=== PATIENT | female | born 1935 | race Caucasian/White ===

== ENCOUNTER 2017-01-09 10:02 | Emergency (ER) | payer MEDICARE, BC ==
[2017-01-09 10:27] VITALS: BP 121/70
[2017-01-09] MEDS ORDERED: ACYCLOVIR 800 MG TABLET PO ONE (10:55)
--- OUTSIDE RECORDS SUMMARY | 2017-01-09 11:06 | XMS REPORT | Continuity of Care Document ---
:1935 Author Organization [facility] ([facility]) Address [place] [address] Phone [phone] Care Team Providers Name Role Phone Gopi Santos Primary Care Provider [phone] Source Comments This disclosure is being made pursuant to the Care Everywhere program, applicable federal and state laws, and may not contain all informaitonavailable regarding this patient.[facility] ([facility]) Active Allergies and Adverse Reactions Allergen Noted Date Severity Reactions Comments Clarithromycin OTHER extreme weakness (not allergic) Hydrochlorothiazide OTHER tired and washed out (not allergic) Lomefloxacin OTHER tired and washed out Other Agent OTHER Perfumes (sore thoart and difficulty breathing) Phenylpropanolamine OTHER tired and washed out (not allergic) Salicylates OTHER tired and washed out (not allergic) Sulfadoxine OTHER tired and washed out Trandolapril OTHER tired and washed out not allergic Current Medications Not on file Active Problems Problem Noted Date Essential hypertension, benign 04/17/2007 Immunizations Name Dates Previously Given Next Due Influenza, unspecified 09/14/2006 Social History Tobacco Use Types Packs/Day Years Used Date Never Assessed Last Filed Vital Signs Vital Sign Reading Time Taken Blood Pressure 160/92 08/01/2007 11:43 AM CDT Pulse 72 08/01/2007 11:43 AM CDT Temperature 36.2 C (97.16 F) 08/01/2007 11:43 AM CDT Respiratory Rate - - Height - - Weight 54.999 kg (121 lb 4 oz) 08/01/2007 11:43 AM CDT Body Mass Index - - Oxygen Saturation - - Plan of Care Health Maintenance Due Date Last Done Comments Hepatitis B Vaccine (1 of 3 - Primary Series) 1935 Tdap Vaccine 1945 Lipid Disorder Screening 1952 Td Vaccine 1952 Colonoscopy 12/07/1984 Zoster Vaccine 1994 Osteoporosis Screening (DXA Bone Density) 1999 Pneumococcal Vaccine (1 of 2 - PCV13) 1999 Influenza Vaccine: Seasonal (#1) 06/14/2016 09/14/2006 Results from Last 3 Months Not on file
--- NOTE | 2017-01-09 11:13 | ERNOTE ---
Integumentary HPI - Narrative Date of Service: 01/09/17 - General Presenting Symptoms: rash Time Seen by Provider: 01/09/17 10:38 Source: patient, family Exam Limitations: no limitations - Immun/Allergies/Home Medications Immunizations: IMMUNIZATION HX History of Influenza Vaccine Yes Hx Pneumococcal Vaccination No Allergies/Adverse Reactions: Allergies Allergy/AdvReac Type Severity Reaction Status Date / Time No Known Allergies Allergy Verified 01/09/17 10:27 Home Medications: HOME MEDICATIONS Albuterol Sulfate [Ventolin Hfa] 2 puff IH Q4H PRN 02/21/14 [Last Taken Unknown] Alprazolam 0.25 - 0.5 mg PO TID PRN 02/21/14 [Last Taken Unknown] Amlodipine Besylate [Norvasc] 10 mg PO HS 02/21/14 [Last Taken Unknown] Ascorbic Acid [Vitamin C] 500 mg PO DAILY 02/21/14 [Last Taken Unknown] Enalapril Maleate [Vasotec] 10 mg PO BID 02/21/14 [Last Taken Unknown] Famotidine [Pepcid AC] 10 mg PO BID PRN 02/21/14 [Last Taken Unknown] Tiotropium [place] [Spiriva] 1 cap IH DAILY 02/21/14 [Last Taken Unknown] Vitamin E 100 unit PO DAILY 02/21/14 [Last Taken Unknown] Ascorbic Acid/Cod Liver Oil [Cod Liver Oil Tab Chewable] 2 each PO DAILY [Last Taken Unknown] Aspirin [Aspirin Enteric Coated] 81 mg PO DAILY 06/18/15 [Last Taken Unknown] Calcium Carbonate/Vitamin D3 [Calcium 500 + Vit D3 400 Tab] 1 each PO BID [Last Taken Unknown] Cyanocobalamin (Vitamin B-12) [Vitamin B-12] 2,000 mcg PO DAILY 06/18/15 [Last Taken Unknown] Fluticasone Propionate [Flovent Hfa] 2 puff IH BID 06/18/15 [Last Taken Unknown] Levalbuterol Tartrate [Xopenex Hfa] 2 puff IH Q6H PRN 06/18/15 [Last Taken Unknown] Levocetirizine Dihydrochloride [Xyzal] 5 mg PO HS 06/18/15 [Last Taken Unknown] Montelukast Sodium [Singulair] 10 mg PO DAILY 06/18/15 [Last Taken Unknown] Acyclovir 800 mg PO 5XD #35 tablet 01/09/17 [Last Taken Unknown] - Pain Pain Score: 0 - History of Present Illness Narrative: 81 y/o female brought to the ED in wheelchair with oxygen by her daughter for left eye swelling and drainage that began yesterday. Today she has also developed a rash on her nose and the left frontal region extending into her scalp. She denies any pain. She reports some blurring of her vision. Location: Reports: facial Quality: Denies: itching, painful, burning Severity: moderate Exposure: Reports: no cause identified Associated Symptoms: Reports: blisters, rash, change in skin texture, edema, malaise. Denies: fever, headache Review of Systems - Review of Systems Constitutional: Absent: recent illness, fever, chills EYE: Present: eye discharge, blurred vision. Absent: eye pain, tearing ENT: Absent: ear pain, nasal drainage, sore throat Respiratory: Present: shortness of breath - chronic, cough - chronic Cardiology: Present: no symptoms reported Gastrointestinal/Abdominal: Absent: nausea, vomiting, abdominal pain Genitourinary: Present: no symptoms reported Musculoskeletal: Absent: muscle stiffness, neck pain Skin: Present: rash, lesions Neurological: Absent: headache, dizziness/light-headedness, numbness, tingling Endocrine: Present: no symptoms reported Hematologic/Lymphatic: Present: no symptoms reported Psych: Present: no symptoms reported - Patient's Past Medical History Patient History - Medical: Cataracts, GERD, Osteoporosis, UTI'S Patient History - Cardiac/Respiratory: COPD, Hypertension, Hyperlipidemia, Home O2 Use Patient History - Cancer: No Hx of Cancer Patient History - Surgical Procedures: Appendectomy, Cataracts, Hysterectomy Patient History - Other: None - Social History Living Situations: home Abuse History: No History of abuse Psych History: No pertinent hx Smoking Status: Current every day smoker Cigarettes Packs Per Day: 0.3 Patient requests Smoking Cessation Consult: No Alcohol Use: none Drug Use: none - Immunizations Hx Pneumococcal Vaccination: No History of Influenza Vaccine: Yes Physical Exam - Physical Exam General Appearance: Present: alert, no apparent distress, cachetic, other - disheveled, frail appearing Eye Exam: PERRL: bilateral, EOMI: bilateral, Eye drainage: left - purulent, Eyelid inflammation: left, Other: bilateral - no photophobia or eye pain with EOM's Ears, Nose, Throat: Present: hearing grossly normal, normal pharynx. Absent: abnormal TM (R), abnormal TM (L), nasal congestion, sinus pain/drainage Neck: Present: normal inspection, nontender, supple. Absent: lymphadenopathy (R ), lymphadenopathy (L) Respiratory: Present: no respiratory distress, no accessory muscle use, lungs clear, decreased breath sounds, expiration (prolonged) Cardiovascular/Chest: Present: regular rate, rhythm, no murmur, normal peripheral pulses Extremity Exam: Present: non-tender, pedal edema Neurological Exam: Present: alert, oriented, no motor/sensory deficits, other - dysphoric. Absent: normal mood/affect Skin Exam: Present: warm/dry, skin rash - moderate papular/vesicular eruption to nose and left frontal region extending into scalp ED Progress - Vital Signs Patient's Vital Signs:: I have reviewed the patient's vital signs. Vital Signs: Vital Signs 01/09/17 10:23 Temperature 36.0 C L Pulse Rate 83 Respiratory 18 Rate Blood Pressure 121/70 O2 Sat by Pulse 89 L Oximetry - Progress/Reassessment Chief Complaint: Eye Injury/Trauma Progress:: Unchanged Plan - Plan Plan: Patient does not like to take any additional medication - questionable as to whether she will take the acyclovir despite her daughter's insistence. Discussed complications of untreated zoster. Daughter in agreement with contacting opthalmology for f/u when they are back in the office tomorrow. Departure Clinical Impression: Herpes zoster with other ophthalmic complications - Departure Disposition: Home Follow Up Needed Condition: Stable Instructions: Shingles, [id number] Additional Instructions: Continue your current medications Take Acyclovir as directed Avoid contact with women and people who have not had chicken pox Contact opthalmology tomorrow for appointment to evaluate eye involvement Referrals: Augie Ziegler DO [Primary Care Provider] - Armando Bernal MD [Staff Physician] - Prescriptions: Acyclovir 800 mg PO 5XD #35 tablet
[2017-01-09] MEDS ORDERED: ACYCLOVIR 800 MG TABLET ONE (11:17)
== END 2017-01-09 11:41 | disposition home or self-care (01) ==
LOC: ER 10:02
DX: B02.30 Zoster ocular disease, unspecified (principal); F17.210 Nicotine dependence, cigarettes, uncomplicated

== ENCOUNTER 2017-01-20 09:56 | Inpatient (IN) | payer MEDICARE, BC ==
[2017-01-20 10:41] LABS: Hematocrit 40.7 % (37.0-47.0); Hemoglobin 12.2 gm/dL (12.5-16.0); Mean Cell Volume 112.7 fl (78-100); Mean Corpuscular Hemoglobin 33.8 pg (27-31); Mean Platelet Volume 8.9 fl (6.0-9.5); Neutrophil % 84.5 % (42-75.0); Platelet Count 167 K/mm3 (150-450); Red Blood Count 3.61 M/mm3 (4.2-5.4); White Blood Count 16.5 K/mm3 (4.0-10.5)
[2017-01-20 10:42] LABS: Urine Bilirubin 1 mg/dl (NEGATIVE); Urine Blood 25 /ul (NEGATIVE); Urine Ketone 5 mg/dL (NEGATIVE); Urine Nitrite Negative (NEGATIVE); Urine Protein 100 mg/dL (NEGATIVE); Urine Specific Gravity >=1.030 SP.GR. (1.005-1.010); Urine Urobilinogen 4 EU/dl (NORMAL); Urine pH 5.5 pH (5.0-7.0)
--- OUTSIDE RECORDS SUMMARY | 2017-01-20 10:43 | XMS REPORT | Continuity of Care Document ---
:1935 Author Organization [facility] ([facility]) [place] [address] Phone [phone] Care Team Providers Name Role Phone Gopi Santos Primary Care Provider [phone] Source Comments This disclosure is being made pursuant to the Care Everywhere program, applicable federal and state laws, and may not contain all informaitonavailable regarding this patient.[facility] ([facility]) Active Allergies and Adverse Reactions Allergen [...]
--- OUTSIDE RECORDS SUMMARY | 2017-01-20 10:44 | XMS REPORT | Summary of Care ---
:1935 Author Organization [facility] Address [address] [place] [address] Care Team Providers Name Role Phone Augie Ziegler Primary Care Physician Encounter Date(s): 01/10/17 - 01/10/17 [facility], [address] [place], [place] [address] Discharge Disposition: Discharged to Home or Self Care Attending Physician: Shanika Arrington MD Referring Physician: Shanika Arrington MD Vital Signs No data available for this section Problem List No data available for this section Allergies, Adverse Reactions, Alerts No Known Medication Allergies Medications acyclovir 400 mg oral tablet 1 tab(s), Oral, TID, # 90 tab(s), 2 Refill(s), Start Date: 01/10/17 10:24:00 SMASH HAND , Pharmacy: [facility] [place], [place] Start Date: 01/10/17 Stop Date: 04/10/17 Status: Orderedacyclovir 800 mg oral tablet 1 tab(s), Oral, 5x/Day, # 50 tab(s), 0 Refill(s), Start Date: 01/10/17 10:04:00 [facility] HAND Start Date: 01/10/17 Stop Date: 01/20/17 Status: OrderedALPRAZolam 0.5 mg oral tablet 1 tab(s), Oral, TID, PRN for anxiety, 0 Refill(s), Start Date: 01/10/17 9:59:00 [facility] HAND Start Date: 01/10/17 Status: OrderedALPRAZolam oral concentrate 1 mg, Oral, TID, 0 Refill(s), Start Date: 01/10/17 10:01:00 [facility] Start Date: 01/10/17 Status: OrderedAspir 81 81 mg, Oral, Daily, 0 Refill(s), Start Date: 01/10/17 10:00:00 [facility] HAND Start Date: 01/10/17 Status: OrderedNorvasc 10 mg oral tablet 1 tab(s), Oral, Daily, # 30 tab(s), 0 Refill(s), Start Date: 01/10/17 9:59:00 [facility] HAND Start Date: 01/10/17 Status: OrderedPepcid AC 10 mg, Oral, ONETIME, 0 Refill(s), Start Date: 01/10/17 10:00:00 [facility] Start Date: 01/10/17 Status: OrderedSingulair 10 mg oral tablet 1 tab(s), Oral, qPM, # 30 tab(s), 0 Refill(s), Start Date: 01/10/17 10:01:00 SM[facility] HAND Start Date: 01/10/17 Status: OrderedSpiriva 18 mcg, Inhale, Daily, 0 Refill(s), Start Date: 01/10/17 10:01:00 SM[facility] HAND Start Date: 01/10/17 Status: OrderedVasotec 20 mg oral tablet 1 tab(s), Oral, Daily, # 30 tab(s), 0 Refill(s), Start Date: 01/10/17 9:59:00 SM[facility] HAND Start Date: 01/10/17 Status: OrderedZyrTEC Liquid Gels 10 mg oral capsule 1 cap(s), Oral, Daily, PRN for allergy symptoms, # 40 cap(s), 0 Refill(s), Start Date: 01/10/17 10:01:00 SMASH HAND Start Date: 01/10/17 Status: Ordered Results No data available for this section Immunizations Vaccine Date Refusal Reason influenza virus vaccine, inactivated 08/28/14 Procedures Procedure Date Related Diagnosis Body Site Phacoemulsification of cataract with intraocular lens implantation1 1OU Social History No data available for this section Assessment and Plan No data available for this section
[2017-01-20 10:47] LABS: Urine Appearance Slightly Cloudy; Urine Color Dark Yellow
[2017-01-20] MEDS ORDERED: NORMAL SALINE 1,000 ML IV ONE ×5 (10:49→14:16)
[2017-01-20 10:50] LABS: Urine Bacteria 3+
[2017-01-20 10:54] LABS: Albumin * 2.2 gm/dl (3.4-5.0); Anion Gap 13.7 mmol/L (6.8-13.8); BUN/Creatinine Ratio 23.9 (9.0-21.6); Bilirubin, Total 0.6 mg/dL (0.0-1.1); Ca. Corrected For Albumin 8.5 mg/dL (8.4-10.2); Calcium * 7.4 mg/dL (7.9-10.9); Carbon Dioxide 29.6 mmol/L (24-32.6); Potassium 5.3 mmol/L (3.4-4.6); Total Protein 4.7 gm/dL (6.2-8.2)
--- NOTE | 2017-01-20 11:05 | ERNOTE ---
Neuro HPI ER Record Date of Service: 01/20/17 Presenting Symptoms: other - Pt was found down and unresponsive. Last time seen was last night and she appeared to be in good spirits at that time. The patient is quite frail and has advanced COPD. Time Seen by Provider: 01/20/17 10:37 Immunizations: IMMUNIZATION HX History of Influenza Vaccine Yes Hx Pneumococcal Vaccination No Allergies/Adverse Reactions: Allergies Allergy/AdvReac Type Severity Reaction Status Date / Time No Known Allergies Allergy Verified 01/20/17 11:11 Home Medications: HOME MEDICATIONS Albuterol Sulfate [Ventolin Hfa] 2 puff IH Q4H PRN 02/21/14 [Last Taken Unknown] Alprazolam 0.25 - 0.5 mg PO TID PRN 02/21/14 [Last Taken Unknown] Amlodipine Besylate [Norvasc] 10 mg PO HS 02/21/14 [Last Taken Unknown] Ascorbic Acid [Vitamin C] 500 mg PO DAILY 02/21/14 [Last Taken Unknown] Enalapril Maleate [Vasotec] 10 mg PO BID 02/21/14 [Last Taken Unknown] Famotidine [Pepcid AC] 10 mg PO BID PRN 02/21/14 [Last Taken Unknown] Tiotropium [place] [Spiriva] 1 cap IH DAILY 02/21/14 [Last Taken Unknown] Vitamin E 100 unit PO DAILY 02/21/14 [Last Taken Unknown] Ascorbic Acid/Cod Liver Oil [Cod Liver Oil Tab Chewable] 2 each PO DAILY [Last Taken Unknown] Aspirin [Aspirin Enteric Coated] 81 mg PO DAILY 06/18/15 [Last Taken Unknown] Calcium Carbonate/Vitamin D3 [Calcium 500 + Vit D3 400 Tab] 1 each PO BID [Last Taken Unknown] Cyanocobalamin (Vitamin B-12) [Vitamin B-12] 2,000 mcg PO DAILY 06/18/15 [Last Taken Unknown] Fluticasone Propionate [Flovent Hfa] 2 puff IH BID 06/18/15 [Last Taken Unknown] Levalbuterol Tartrate [Xopenex Hfa] 2 puff IH Q6H PRN 06/18/15 [Last Taken Unknown] Levocetirizine Dihydrochloride [Xyzal] 5 mg PO HS 06/18/15 [Last Taken Unknown] Montelukast Sodium [Singulair] 10 mg PO DAILY 06/18/15 [Last Taken Unknown] Acyclovir 800 mg PO 5XD #35 tablet 01/09/17 [Last Taken Unknown] - History of Present Illness Narrative: Patient was brought in by EMS and had a Ellis tube in place patient remained unresponsive for the entire trip in per ambulance service. Patient was very cold to the the touch hypotensive and appeared to be hypoxic. Discussion with the family reguarding the CODE STATUS with the family and they are in discussion regarding that right now. Onset: other - unknown Severity: severe - Character of Deficits Associated Symptoms: Reports: unresponsive Review of Systems - Narrative Narrative: I am unable to obtain review of systems from the patient due to her obtunded condition. - Review of Systems Constitutional: Present: See HPI EYE: Present: no symptoms reported ENT: Present: no symptoms reported Respiratory: Present: no symptoms reported Cardiology: Present: no symptoms reported Gastrointestinal/Abdominal: Present: no symptoms reported Genitourinary: Present: no symptoms reported Musculoskeletal: Present: no symptoms reported Skin: Present: no symptoms reported Neurological: Present: no symptoms reported Endocrine: Present: no symptoms reported Hematologic/Lymphatic: Present: no symptoms reported Psych: Present: no symptoms reported - Patient's Past Medical History Patient History - Medical: Cataracts, Diabetes Type 2 Insulin Dependent, GERD, Glaucoma, Osteoporosis, UTI'S Patient History - Cardiac/Respiratory: COPD, Hypertension, Hyperlipidemia, Home O2 Use Patient History - Cancer: No Hx of Cancer Patient History - Surgical Procedures: Appendectomy, Cataracts, Hysterectomy Patient History - Other: None - Social History Living Situations: home Abuse History: No History of abuse Psych History: No pertinent hx Smoking Status: Current every day smoker Alcohol Use: none Drug Use: none - Immunizations Hx Pneumococcal Vaccination: No History of Influenza Vaccine: Yes Physical Exam - Physical Exam General Appearance: Present: severe distress Eye Exam: Normal inspection: bilateral, PERRL: bilateral Ears, Nose, Throat: Present: dry mucous membranes Neck: Present: normal inspection, nontender Respiratory: Present: respiratory distress, decreased breath sounds Cardiovascular/Chest: Present: regular rate, rhythm, no murmur Gastrointestinal/Abdominal: Present: normal bowel sounds, nondistended Rectal Exam: Present: deferred Back Exam: Present: other - no obvious abnormality upon rolling the patient Extremity Exam: Present: no edema Neurological Exam: Present: disoriented to person, disoriented to time, disoriented to place, disoriented to situation Skin Exam: Present: cool/dry Lymphatic Exam: Present: no adenopathy [place] Coma Scale - Assess Eye Opening: To Pain Motor: Withdraws to Pain Verbal: Incomprehensible - Total Coma Scale Total: 8 ED Progress - Results and Orders Patient's Lab Results:: I have reviewed the patient's lab results. - Vital Signs Patient's Vital Signs:: I have reviewed the patient's vital signs. Vital Signs: Vital Signs 01/20/17 01/20/17 10:03 10:27 Temperature 36.0 C L Pulse Rate 76 85 Respiratory 15 12 Rate Blood Pressure 89/47 88/37 O2 Sat by Pulse 100 Oximetry - EKG EKG: NSR - X-Ray X-Ray #1 X-Ray: chest Interpretation: Reviewed by me - CT/Ultrasound CT/Ultrasound Narrative: Head CT results reviewed - Progress/Reassessment Chief Complaint: Altered Mental Status Progress:: Unchanged - Transfer of Care Expected Disposition: Admit Procedures Intubation Method: endotrachial with venti Tube Size (cm): 7.0 Medications: Succinylcholine Breath Sounds after Intubation: equal Intubation Complications: no complications Post Intubation Xray: Yes Plan - Plan Plan: Patient to be admitted to the ICU. Long discussion with the family regarding CODE STATUS and the fact that she is apparently in multisystem organ failure and they appeared to understand. Family agreed to a DNR and signed the appropriate papers in my presence. At this point patient was intubated prior to signing a DNR. We will keep her intubated for now she has gotten 3 L of normal saline without any urine output and she has markedly elevated liver enzymes and I suspect both these organ systems are failing. Given the elevated lactate I suspect pt may have mesenteric ischemia as well and may be infarcting her bowel. Departure Clinical Impression: Sepsis Qualifiers: Sepsis type: sepsis due to unspecified organism Qualified Code(s): A41.9 - Sepsis, unspecified organism - Departure Disposition: HEALTH SYSTEM Condition: Critical - Critical Care Total Time (mins): 85 Critical Care: Patient arrived in the ER in extreme distress. She was found unresponsive at the home cold to the touch and hypoxic. She arrived with a Ellis tube in place and was rapidly intubated using a 7.0 ET tube. She was given a total of 3 L of normal saline in the emergency department without any substantial urine output. Discussed with the family both a DNR and if so than the need for a central line with some sort in order to administer pressors and the family declined pressors and signed DNR orders. I obtained an ABG in the right femoral artery and a subsequent ABG gotten by respiratory therapy revealed little to no change in her pH which is 7.0 and her CO2 which hovered in the 80 range. Her blood pressure continues to however in the roughly 80/30 range so sedation will not be an option now without the presence of pressors available.
[2017-01-20] MEDS ORDERED: VANCOMYCIN HCL 1 GM in DEXTROSE 5 % IN WATER 250 ML IV ONE ×2 (11:06)
[2017-01-20 11:18] LABS: Prothrombin Time (Patient) 15.1 Seconds (9.4-11.4)
[2017-01-20 11:19] LABS: INR 1.45 INR (0.90-1.10)
--- OUTSIDE RECORDS SUMMARY | 2017-01-20 12:42 | XMS REPORT | Continuity of Care Document ---
:1935 Author Organization [facility] ([facility]) [place] [address] Phone [phone] Care Team Providers Name Role Phone Gopi Santos Primary Care Provider [phone] Source Comments This disclosure is being made pursuant to the Care Everywhere program, applicable federal and state laws, and may not contain all informaitonavailable regarding this patient.[facility] ([facility]) Active Allergies and Adverse Reactions Allergen Noted [...]
--- NOTE | 2017-01-20 12:56 | OR ---
Anesthesia Procedure Note - Anesthesia Procedure Note Date of Service: 01/20/17 Narrative: Vital Signs - Last Taken Temp 36.0 C L 01/20/17 10:03 Pulse 73 01/20/17 12:22 Resp 16 01/20/17 12:22 BP 88/60 01/20/17 12:22 Pulse Ox 82 L 01/20/17 10:59 01/20/17 12:47 ANESTHESIA PROCEDURE NOTE Date of Procedure: 01/20/2017. Time of procedure: 1215. Performed by: Lalito Dunaway CRNA Employment Adjudicator: None. Preprocedure diagnosis: Sepsis, abnormal liver enzymes, respiratory failure. Post procedure diagnosis: Same. Procedure: Unsuccessful ultrasound-guided PICC line insertion. Indications: This is an 81-year-old female in the emergency room who is in need of a PICC line for IV therapy and vasopressors. Findings: See below. Details of the procedure: Under ultrasound guidance the right cephalic vein was visualized. Skin over the intended target site was cleansed with ChloraPrep. The patient was draped in sterile fashion. The skin over the intended target site was anesthetized with 1% lidocaine. Under direct ultrasound visualization the vein was cannulated with a 20-gauge IV catheter. Dark red blood was noted from the catheter. A 0.45 mm guidewire was inserted through the IV catheter but there was resistance upon inserting the guidewire approximately 6 cm into the vein. Several attempts were made at manipulating the catheter and guidewire without success. The IV catheter was removed intact. A second attempt was made at the right cephalic vein under ultrasound guidance with a 20-gauge IV catheter. Dark red blood was noted again from the catheter. The 0.45 mm guidewire however could still not be inserted beyond approximately 6 cm into the vein. The guidewire and IV catheter with then removed intact. Pressure was applied to the insertion site until hemostasis was maintained. The procedure was then aborted. Details of the procedure were discussed with the emergency room physician and it was decided to abort any further attempts at a central line insertion. EBL: Minimal. Fluids: N/A. Specimen: N/A. Post procedure condition: The patient tolerated the procedure well. No complications were noted. Thank you for this consultation. Lalito Dunaway CRNA
[2017-01-20] MEDS: ALBUTEROL SULFATE/IPRATROPIUM 3 ML NEBU IH SCH ×3 (14:17→23:20)
[2017-01-20 14:24] LABS: Albumin * 2.4 gm/dl (3.4-5.0); Anion Gap 14.6 mmol/L (6.8-13.8); BUN/Creatinine Ratio 23.6 (9.0-21.6); Bilirubin, Total 0.6 mg/dL (0.0-1.1); Ca. Corrected For Albumin 8.6 mg/dL (8.4-10.2); Calcium * 7.6 mg/dL (7.9-10.9); Carbon Dioxide 27.1 mmol/L (24-32.6); Potassium 5.7 mmol/L (3.4-4.6); Total Protein 4.8 gm/dL (6.2-8.2)
[2017-01-20] MEDS: NOREPINEPHRINE BITARTRATE 4 MG in DEXTROSE 5 % IN WATER 496 ML IV PRN ×2 (15:05)
[2017-01-20] MEDS: PIPERACILLIN SODIUM/TAZOBACTAM 3.375 GM in DEXTROSE 5 % IN WATER 100 ML IV SCH ×4 (15:10→21:25)
[2017-01-20] MEDS ORDERED: PANTOPRAZOLE SODIUM 40 MG in NORMAL SALINE 100 ML IV SCH (16:45)
[2017-01-20] MEDS ORDERED: ENOXAPARIN SODIUM 40 MG/0.4 ML SYRG SC SCH (16:45)
--- NOTE | 2017-01-20 16:46 | HP ---
Chief Complaint - Chief Complaint Date of Service: 01/20/17 Time of Service: 16:45 Chief Complaint: Unresponsive History of Present Illness: Cira is an 81yo female, of whom I am very familiar. She has significant PMH of COPD and has recently been diagnosed with shingles and treated with involvement of her left forehead and orbital area extending up into her scalp. She has been treated with acyclovir and lesions have been drying up and improved. She was found unresponsive on the floor of her home this morning by family. She was last seen about 12 hours prior by family who report that she had been more tired then usual but otherwise in her usual state of health. Family reports no recent change in her breathing and she did not have any recent concerns other than the shingles which was being treated and improving. She was brought to the ER at [facility] in an unresponsive state. She was intubated, bloodwork, chest xray, and head CT were performed. There were no acute findings on either imaging. Bloodwork showed a combined respiratory acidosis and metabolic lactic acidosis with lactate of 9. She was hypotensive 60 /40s and given aggressive IVF and vancomycin for concern of infection. UA was obtained and showed evidence of UTI. ER physician discussed with family who requested she not be transferred and that everything be done at least for 24 hours to see what response she has. - Patient's Past Medical History Patient History - Medical: Cataracts, GERD, Glaucoma, Osteoporosis, UTI'S Patient History - Cardiac/Respiratory: COPD, Hypertension, Hyperlipidemia, Home O2 Use Patient History - Cancer: No Hx of Cancer Patient History - Surgical Procedures: Appendectomy, Cataracts, Hysterectomy Patient History - Other: None - Family History Mother Family History - Medical: Father Family History - Medical: Family History - Cardiac/Respiratory: Hypertension - Social History Living Situations: spouse Abuse History: No History of abuse Psych History: No pertinent hx Smoking Status: Current every day smoker Have you smoked in the past 12 months: Yes Alcohol Use: none Drug Use: none - Immunizations Hx Pneumococcal Vaccination: No History of Influenza Vaccine: Yes Review Of Systems (GEN) - Review of Systems Additional Comments: Unable to address in patient condition. Immunizations: IMMUNIZATION HX History of Influenza Vaccine Yes Hx Pneumococcal Vaccination No Allergies/Adverse Reactions: Allergies Allergy/AdvReac Type Severity Reaction Status Date / Time Sulfa (Sulfonamide Allergy Verified 01/20/17 15:46 Antibiotics) Home Medications: HOME MEDICATIONS Alprazolam 0.5 mg PO TID PRN 02/21/14 [Last Taken Unknown] Amlodipine Besylate [Norvasc] 10 mg PO DAILY 02/21/14 [Last Taken Unknown] Enalapril Maleate [Vasotec] 10 mg PO BID 02/21/14 [Last Taken Unknown] Montelukast Sodium [Singulair] 10 mg PO DAILY 06/18/15 [Last Taken Unknown] Acyclovir 800 mg PO 5XD #35 tablet 01/09/17 [Last Taken Unknown] Albuterol Sulfate [Ventolin HFA] 2 puff IH Q6H PRN 01/20/17 [Last Taken Unknown] Ascorbic Acid [Vitamin C] 500 mg PO DAILY 01/20/17 [Last Taken Unknown] Aspirin [Aspirin EC] 81 mg PO DAILY 01/20/17 [Last Taken Unknown] Calcium Carbonate/Vitamin D3 [Calcium 500+D Tablet Chew] 1 each PO BID 01/20/17 [Last Taken Unknown] Cyanocobalamin (Vitamin B-12) [Vitamin B12] 2,000 mcg PO DAILY 01/20/17 [Last Taken Unknown] Enalapril Maleate [Vasotec] 20 mg PO HS 01/20/17 [Last Taken Unknown] Famotidine [Pepcid] 10 mg PO BID PRN 01/20/17 [Last Taken Unknown] Levalbuterol Tartrate [Xopenex Hfa] 2 puff IH Q6H PRN 01/20/17 [Last Taken Unknown] Multivit #34/FA/Nadh/Ubiquinon [Xyzbac Tablet] 1 each PO HS 01/20/17 [Last Taken Unknown] Om3/Dha/Epa/Cod Liver Oil/A/D3 [Cod Liver Oil Softgel] 2 each PO DAILY 01/20/17 [Last Taken Unknown] Umeclidinium Mason [Incruse Ellipta] 62.5 mcg IH DAILY 01/20/17 [Last Taken Unknown] Vitamin E 100 unit PO DAILY 01/20/17 [Last Taken Unknown] Exam - Exam Vital Signs: Vital Signs - Last Taken Temp 37.3 C 01/20/17 16:10 Pulse 80 01/20/17 16:10 Resp 20 01/20/17 15:13 BP 65/37 01/20/17 16:10 Pulse Ox 100 01/20/17 16:10 Constitutional: Present: Ilana Denis is an 81 yo female on mechanical ventilation. She opens her eyes to verbal stimulus and will squeeze hand to request ENT Exam: Present: hearing grossly normal, other - ET tube in place Eye Exam: bilateral eye: normal inspection Respiratory: Present: lungs clear, decreased breath sounds Cardiovascular/Chest: Present: regular rate, rhythm, no murmur Peripheral Pulses: radial (R): 1+, radial (L): 1+ Abdomen: Present: Normal bowel sounds, soft, nondistended, no hepatospenomegaly Extremity: Present: normal inspection, no pedal edema Skin Exam: Present: skin rash - Left forehead and matti-orbital area up into left scalp with dry crusted lesions in clusters Lymphatic: Present: no adenopathy Neurologic: Present: other - Difficult to ascertain due to condition. Cranial nerves are grossly intact, patient has equal use of upper extremities by command and by voluntary movement, gross movement of legs appears intact as well. Diagnostic Studies: Abnormal Lab Results 01/20/17 01/20/17 01/20/17 Range/Units 13:30 13:30 16:12 pCO2 59.6 H (32.0-45.0) mmHg HCO3 19.9 L (21.0-28.0) mmol/L Base Excess -9.9 L (-2.0-3.0) mmol/L ABG pH 7.14 L* (7.35-7.45) ABG O2 Sat (Measured) 93.2 L (94.0-98.0) % Potassium 5.7 H (3.4-4.6) mmol/L Anion Gap 14.6 H (6.8-13.8) mmol/L BUN 34 H (3-23) mg/dL Creatinine 1.44 H (0.4-1.4) mg/dL Est GFR (Non-Af Amer) 37 L (60-130) mL/min BUN/Creatinine Ratio 23.6 H (9.0-21.6) Random Glucose 160 H D (70-110) mg/dL Lactic Acid, Venous 6.8 H* (0.4-2.0) mmol/L Calcium 7.6 L (7.9-10.9) mg/dL AST 1424 H (0-48) U/L ALT 1382 H (19-67) U/L Total Protein 4.8 L (6.2-8.2) gm/dL Albumin 2.4 L (3.4-5.0) gm/dl Laboratory Results WBC 16.5 K/mm3 (4.0-10.5) H 01/20/17 10:30 RBC 3.61 M/mm3 (4.2-5.4) L 01/20/17 10:30 Hgb 12.2 gm/dL (12.5-16.0) L 01/20/17 10:30 Hct 40.7 % (37.0-47.0) 01/20/17 10:30 MCV 112.7 fl (78-100) H 01/20/17 10:30 MCH 33.8 pg (27-31) H 01/20/17 10:30 MCHC 30.0 g/dl (32-36) L 01/20/17 10:30 RDW 14.0 % (11.5-14.0) 01/20/17 10:30 Plt Count 167 K/mm3 (150-450) 01/20/17 10:30 MPV 8.9 fl (6.0-9.5) 01/20/17 10:30 Immature Gran % (Auto) 2.40 % (0.001-0.429) H 01/20/17 10:30 Immature Gran # (Auto) 0.39 K/mm3 (0.000-0.0310) H 01/20/17 10:30 Neutrophils % 84.5 % (42-75.0) H 01/20/17 10:30 Lymphocytes % 4.1 % (20-51) L 01/20/17 10:30 Monocytes % 8.7 % (0.0-9) 01/20/17 10:30 Eosinophils % 0.1 % (0.0-3.0) 01/20/17 10:30 Basophils % 0.2 % (0.0-1.0) 01/20/17 10:30 Nucleated RBC % 0.0 k/mm3 (0-1) 01/20/17 10:30 Neutrophils # 14.0 K/mm3 (1.3-6.0) H 01/20/17 10:30 Lymphocytes # 0.7 k/mm3 (1.5-3.5) L 01/20/17 10:30 Monocytes # 1.4 k/mm3 (0.0-1.0) H 01/20/17 10:30 Eosinophils # 0.0 k/mm3 (0.0-0.7) 01/20/17 10:30 Absolute Basophils 0.0 k/mm3 (0.0-0.1) 01/20/17 10:30 PT 15.1 Seconds (9.4-11.4) H 01/20/17 10:30 INR (Anticoag Therapy) 1.45 INR (0.90-1.10) H 01/20/17 10:30 pCO2 59.6 mmHg (32.0-45.0) H 01/20/17 16:12 pO2 85.8 mmHg (83.0-108.0) 01/20/17 16:12 HCO3 19.9 mmol/L (21.0-28.0) L 01/20/17 16:12 Total CO2 21.7 mmol/L (19.0-24.0) 01/20/17 16:12 Base Excess -9.9 mmol/L (-2.0-3.0) L 01/20/17 16:12 ABG pH 7.14 (7.35-7.45) L* 01/20/17 16:12 ABG O2 Sat (Measured) 93.2 % (94.0-98.0) L 01/20/17 16:12 Sodium 137 mmol/L (132-142) 01/20/17 13:30 Plasma Sodium 138 mmol/L (130-142) 01/20/17 13:30 Potassium 5.7 mmol/L (3.4-4.6) H 01/20/17 13:30 Chloride 101 mmol/L (97-106) 01/20/17 13:30 Carbon Dioxide 27.1 mmol/L (24-32.6) 01/20/17 13:30 Anion Gap 14.6 mmol/L (6.8-13.8) H 01/20/17 13:30 BUN 34 mg/dL (3-23) H 01/20/17 13:30 Creatinine 1.44 mg/dL (0.4-1.4) H 01/20/17 13:30 Est GFR (Non-Af Amer) 37 mL/min (60-130) L 01/20/17 13:30 BUN/Creatinine Ratio 23.6 (9.0-21.6) H 01/20/17 13:30 Random Glucose 160 mg/dL (70-110) H D 01/20/17 13:30 Lactic Acid, Venous 6.8 mmol/L (0.4-2.0) H* 01/20/17 13:30 Calcium 7.6 mg/dL (7.9-10.9) L 01/20/17 13:30 Calcium Adj for Albumin 8.6 mg/dL (8.4-10.2) 01/20/17 13:30 Magnesium 2.1 mg/dL (1.2-2.8) 01/20/17 10:30 Total Bilirubin 0.6 mg/dL (0.0-1.1) 01/20/17 13:30 AST 1424 U/L (0-48) H 01/20/17 13:30 ALT 1382 U/L (19-67) H 01/20/17 13:30 Alkaline Phosphatase 66 U/L (50-170) 01/20/17 13:30 Total Protein 4.8 gm/dL (6.2-8.2) L 01/20/17 13:30 Albumin 2.4 gm/dl (3.4-5.0) L 01/20/17 13:30 Urine Color Dark yellow 01/20/17 10:38 Urine Appearance Slightly cloudy 01/20/17 10:38 Urine pH 5.5 pH (5.0-7.0) 01/20/17 10:38 Ur Specific Nickerson >=1.030 SP.GR. (1.005-1.010) 01/20/17 10:38 Urine Protein 100 mg/dL (NEGATIVE) H 01/20/17 10:38 Urine Glucose (UA) Negative mg/dL (NEGATIVE) 01/20/17 10:38 Urine Ketones 5 mg/dL (NEGATIVE) 01/20/17 10:38 Urine Blood 25 /ul (NEGATIVE) H 01/20/17 10:38 Urine Nitrate Negative (NEGATIVE) 01/20/17 10:38 Urine Bilirubin 1 mg/dl (NEGATIVE) H 01/20/17 10:38 Urine Ictotest Negative (NEGATIVE) 01/20/17 10:38 Prot Sulfosalicylic Acd 2+ mg/dL (0) H 01/20/17 10:38 Urine Urobilinogen 4 EU/dl (NORMAL) H 01/20/17 10:38 Ur Leukocyte Esterase 75 /ul (NEGATIVE) H 01/20/17 10:38 Urine RBC 5-10 /hpf (0-5) H 01/20/17 10:38 Urine WBC 10-25 /hpf (0-5) H 01/20/17 10:38 Ur Epithelial Cells 5-10 /hpf (0-5) H 01/20/17 10:38 Urine Bacteria 3+ (NONE) H 01/20/17 10:38 Urine Culture Comments Culture to follow 01/20/17 10:38 Assessment/Plan - Narrative Narrative: Cira is an 81 yo female with the following conditions discussed below. She is in a critical condition from multiple system failure severe sepsis with shock. She will need >2 midnights for treatment with IVF, IV antibiotics, IV pressors until either she improves or family elects to discontinue aggressive medical therapy. - Assessment/Plan (1) Severe sepsis with septic shock Assessment: Requiring mechanical ventilation with leukocytosis, elevated lactic acid, acute renal failure, acute liver failure, and acute respiratory failure. She is also hypotensive. Cira has severe sepsis with multiple end organ failure and shock. Will treat in general with aggressive IVF, antecubital vein was needed for IV access for levophed for pressor support, using broad spectrum IV antibiotics with zosyn and vancomycin. Will monitor blood pressure with a goal to keep MAP >65 and systolic >90. Will titrate levophed to achieve this goal. Blood cultures x 2 taken. Urine culture taken. Discussed with family that her condition is very critical. Family elects to treat for 24 hours and then discuss further prognosis and options of plan. Problem: Acute (2) Respiratory failure with hypoxia and hypercapnia Assessment: Placed on mechanical ventilator. Monitoring blood gases and adjusting vent as needed. CO2 and pH are improving. Problem: Acute (3) Acute respiratory acidosis Problem: Acute (4) Lactic acidosis Assessment: Secondary to being found own vs component of severe sepsis. Will monitor. Repeat lactic acid is trending down. Problem: Acute (5) UTI (urinary tract infection) Assessment: UA suspicious, pending culture. On zosyn and vancomycin and IVF. Problem: Acute (6) Herpes zoster with other ophthalmic complications Assessment: Recent zoster around left forehead and periorbital area. Lesions appear healing with dry crusting present. Neurological involvement is a possible cause to patient's current state, will cover treatment with this possibility with IV acyclovir and IV steroids. Problem: Acute (7) Hyperkalemia Assessment: Treat with IVF, albuterol, insulin. Will monitor. Problem: Acute (8) Hepatic failure, acute Assessment: Suspect secondary to severe sepsis. Problem: Acute (9) Acute renal failure Assessment: Suspect secondary to severe sepsis. Giving IVF and pressors for increased perfusion. Ed[place] in place for accurate monitoring. Problem: Acute (10) COPD (chronic obstructive pulmonary disease) Problem: Chronic (11) Hyperglycemia, drug-induced Assessment: Steroid induced hyperglycemia. Will monitoro with q6hr accuchecks and treat with low dose corrective dose insulin. Will adjust as needed. Problem: Acute (12) DVT prophylaxis Assessment: Lovenox 40mg SC daily for moderate to severe risk for DVT due to immobility and critical illness. Problem: Acute (13) On esomeprazole prophylaxis Assessment: On formulary pantoprazole for GI Stress ulcer prophylaxis Problem: Acute
[2017-01-20] MEDS: ACYCLOVIR SODIUM 500 MG in NORMAL SALINE 100 ML IV SCH (17:31)
[2017-01-20] MEDS: METHYLPREDNISOLONE SOD SUCC 125 MG in WATER FOR INJ.,BACTERIOSTATIC 0 ML IV SCH ×2 (17:32→22:15)
[2017-01-20] MEDS ORDERED: LORazepam 2 MG/ML DISP.SYRIN IV PRN (19:16)
[2017-01-20] MEDS: NORMAL SALINE 1,000 ML IV PRN (21:49)
[2017-01-21] MEDS: INSULIN LISPRO 100 UNITS/ML VIAL SC SCH ×3 (00:37→11:02)
[2017-01-21] MEDS: ACYCLOVIR SODIUM 500 MG in NORMAL SALINE 100 ML IV SCH ×2 (01:20→08:57)
[2017-01-21] MEDS: ALBUTEROL SULFATE/IPRATROPIUM 3 ML NEBU IH SCH ×3 (02:58→10:07)
[2017-01-21] MEDS: METHYLPREDNISOLONE SOD SUCC 125 MG in WATER FOR INJ.,BACTERIOSTATIC 0 ML IV SCH ×2 (04:39→09:46)
[2017-01-21] MEDS: PIPERACILLIN SODIUM/TAZOBACTAM 3.375 GM in DEXTROSE 5 % IN WATER 100 ML IV SCH ×2 (05:41)
[2017-01-21] MEDS: NORMAL SALINE 1,000 ML IV PRN (05:42)
[2017-01-21 06:04] LABS: Hematocrit 39.9 % (37.0-47.0); Hemoglobin 12.6 gm/dL (12.5-16.0); Mean Cell Volume 107.8 fl (78-100); Mean Corpuscular Hemoglobin 34.1 pg (27-31); Mean Corpuscular Hgb Conc 31.6 g/dl (32-36); Mean Platelet Volume 10.2 fl (6.0-9.5); Platelet Count 172 K/mm3 (150-450); White Blood Count 25.1 K/mm3 (4.0-10.5)
[2017-01-21 06:12] LABS: Total Cells Counted 100
[2017-01-21 06:23] LABS: Albumin * 2.3 gm/dl (3.4-5.0); Anion Gap 12.4 mmol/L (6.8-13.8); BUN/Creatinine Ratio 19.4 (9.0-21.6); Bilirubin, Total 0.4 mg/dL (0.0-1.1); Ca. Corrected For Albumin 8.1 mg/dL (8.4-10.2); Calcium * 7.1 mg/dL (7.9-10.9); Carbon Dioxide 25.4 mmol/L (24-32.6); Potassium 5.8 mmol/L (3.4-4.6)
[2017-01-21 06:32] LABS: Band 21 % (0-2.0); Lymphocyte 2 % (20-51); Monocyte 4 % (0-9); Neutrophil 73 % (42-75); Neutrophil # 18.3 K/mm3 (1.3-6.0)
[2017-01-21 06:33] LABS: Macrocytosis 2+; Platelet Estimate Normal (NORMAL); Polychromasia 1+
[2017-01-21 06:34] LABS: Basophilic Stippling Trace
[2017-01-21 06:35] LABS: Howell-Jolly Bodies Trace; Hypochromia Trace; Target Cells Trace
[2017-01-21 06:36] LABS: Toxic Granulation Trace
[2017-01-21 07:40] LABS: Troponin I 9.54 ng/ml (0.00-0.10)
[2017-01-21] MEDS: NOREPINEPHRINE BITARTRATE 4 MG in DEXTROSE 5 % IN WATER 496 ML IV PRN ×2 (08:25)
[2017-01-21 11:19] LABS: Hematocrit 39.6 % (37.0-47.0); Hemoglobin 12.6 gm/dL (12.5-16.0); Mean Cell Volume 107.3 fl (78-100); Mean Corpuscular Hemoglobin 34.1 pg (27-31); Mean Corpuscular Hgb Conc 31.8 g/dl (32-36); Mean Platelet Volume 9.8 fl (6.0-9.5); Platelet Count 150 K/mm3 (150-450); Red Blood Count 3.69 M/mm3 (4.2-5.4); Red Cell Distribution Width 14.3 % (11.5-14.0); White Blood Count 26.5 K/mm3 (4.0-10.5)
[2017-01-21 11:31] LABS: Total Cells Counted 100
[2017-01-21 11:41] LABS: Neutrophil 89 % (42-75)
[2017-01-21 11:42] LABS: Band 9 % (0-2.0); Lymphocyte 1 % (20-51); Monocyte 1 % (0-9); Neutrophil # 23.6 K/mm3 (1.3-6.0); Platelet Estimate Normal (NORMAL)
[2017-01-21 11:43] LABS: Hypochromia Trace; Macrocytosis 2+; Polychromasia Trace; Target Cells Trace; Toxic Granulation 1+
[2017-01-21 11:44] LABS: Basophilic Stippling Trace
[2017-01-21 11:46] LABS: Albumin * 2.5 gm/dl (3.4-5.0); Anion Gap 14.1 mmol/L (6.8-13.8); BUN/Creatinine Ratio 18.2 (9.0-21.6); Bilirubin, Total 0.5 mg/dL (0.0-1.1); Ca. Corrected For Albumin 7.9 mg/dL (8.4-10.2); Carbon Dioxide 25.5 mmol/L (24-32.6); Potassium 5.6 mmol/L (3.4-4.6); Total Protein 5.2 gm/dL (6.2-8.2)
[2017-01-21 11:59] LABS: Troponin I 10.353 ng/ml (0.00-0.10)
[2017-01-21] MEDS ORDERED: ATROPINE SULFATE 150 DROP BTL SL PRN ×2 (12:57→14:06)
[2017-01-21] MEDS ORDERED: ALBUTEROL SULFATE 2.5 MG/3 ML VIAL.NEB IH PRN (12:57)
[2017-01-21] MEDS ORDERED: MORPHINE SULFATE 4 MG/ML SYRG IV PRN ×2 (12:57→14:06)
[2017-01-21] MEDS ORDERED: ONDANSETRON HCL/PF 2 MG/ML VIAL IV PRN ×2 (12:57→14:06)
[2017-01-21] MEDS ORDERED: POLYVINYL ALCOHOL 150 DROP BTL EACHEYE PRN ×2 (12:57→14:06)
[2017-01-21] MEDS ORDERED: IPRATROPIUM BROMIDE 0.5 MG/2.5 ML VIAL.NEB IH PRN ×2 (12:57→14:06)
[2017-01-21] MEDS ORDERED: LORazepam 2 MG/ML DISP.SYRIN IV PRN ×2 (13:01→14:06)
[2017-01-21 13:04] VITALS: BP 81/40
[2017-01-21] MEDS ORDERED: ALBUTEROL SULFATE 2.5 MG/0.5 ML VIAL.NEB IH PRN (14:30)
--- NOTE | 2017-02-21 13:27 | DS ---
Discharge Summary - Provider Primary Care Provider: Augie Ziegler Admitting Clinician: Augie Ziegler Attending Physician on Admission: Augie Ziegler - Date and Time Date of : 01/21/17 Time of : 15:37 - Diagnosis/Cause of (1) Severe sepsis with septic shock Problems: Acute (2) Respiratory failure with hypoxia and hypercapnia Problems: Acute (3) Acute respiratory acidosis Problems: Acute (4) Lactic acidosis Problems: Acute (5) UTI (urinary tract infection) Problems: Acute (6) Herpes zoster with other ophthalmic complications Problems: Acute (7) Hyperkalemia Problems: Acute (8) Hepatic failure, acute Problems: Acute (9) Acute renal failure Problems: Acute (10) COPD (chronic obstructive pulmonary disease) Problems: Chronic (11) Hyperglycemia, drug-induced Problems: Acute (12) DVT prophylaxis Problems: Acute (13) On esomeprazole prophylaxis Problems: Acute - Summary Details (narrative): Cira is an 81 yo female that was found unresponsive at home. EMS brought the patient to [facility] ER were she continued to be minimally responsive, hypotensive, and hypoxic. She was intubated prior to admission when code status was unknown due to respiratory failure. Diagnostics indicated suspicion of sepsis from urinary tract infection. She also had a recent episodes of shingles. She was placed on IV acyclovir and broad spectrum antibiotics. The family discussed with this physician that the patient was DNR/DNI, but they wished her to remain intubated until other family members could arrive. It was decided in discussion with the family that we would treat with medications, including antivirals, antibiotics, pressers and treat fully for the next 24 hours and then reassess once the entire family was present. Over 24 hours she was placed on vancomycin, zosyn, acyclovir, and levophed for septicemia from urinary tract infection. Once the entire family arrived it was discussed that she was still requiring presser support and mechanically ventilation. The family agreed to discontinue all heroic measures and she was made comfort care. She soon after extubation. She is presumed to have from septicemia from urinary tract infection with complications of Respiratory failure with chronic obstructive pulmonary disease, evidence of acute myocardial infarction, acute renal failure, and acute liver failure. Procedures Performed: see notes below Procedure Performed: Intubated 01/20/17 Extubated 01/21/17 - Additional Data Confirmation of as documented by pronouncing clinician: no pulse, no respirations, no heart sounds, pupils fixed and dilated Family: at bedside Attending/PCP notified: Yes Was code activated: No Autopsy requested: No
== END 2017-01-21 16:33 | disposition expired | DRG 871 ==
LOC: ER 09:56 → SCU 12:39 → MS 01-21 14:04
PROVIDERS: ADMIT Family Medicine; ATTEND Family Medicine
PROC: 0XH Anatomical Regions, Upper Extremities, Insertion (ICD-10-PCS; principal; 2017-01-20)
PROC: 0BH17EZ Insertion of Endotracheal Airway into Trachea, Via Natural or Artificial Opening (ICD-10-PCS; principal; 2017-01-20)
PROC: 5A1935Z Respiratory Ventilation, Less than 24 Consecutive Hours (ICD-10-PCS; 2017-01-20)
PROC: 4A033R1 Measurement of Arterial Saturation, Peripheral, Percutaneous Approach (ICD-10-PCS; 2017-01-20)
DX: A41.9 Sepsis, unspecified organism (principal); R65.21 Severe sepsis with septic shock; K72.00 Acute and subacute hepatic failure without coma; J96.02 Acute respiratory failure with hypercapnia; I21.3 ST elevation (STEMI) myocardial infarction of unspecified site; N39.0 Urinary tract infection, site not specified; N17.9 Acute kidney failure, unspecified; E87.2 Acidosis; B02.39 Other herpes zoster eye disease; R40.4 Transient alteration of awareness; J44.9 Chronic obstructive pulmonary disease, unspecified; E87.5 Hyperkalemia; D72.829 Elevated white blood cell count, unspecified; F17.210 Nicotine dependence, cigarettes, uncomplicated; I10 Essential (primary) hypertension; E78.5 Hyperlipidemia, unspecified; Z99.81 Dependence on supplemental oxygen